=== PATIENT | female | born 1990 | race Caucasian/White ===

== ENCOUNTER → 2017-07-07 | Outpatient (CLI) | payer BC ==
--- NOTE | 2017-07-07 12:44 | DIAGNOSTIC IMAGING REPORT ---
ABDOMEN COMPLETE (US) HISTORY: Pain AB PAIN, CHANGE IN BOWEL HABITS, TACHYCARDIA. COMPARISON: None. FINDINGS: Pancreas: The pancreas demonstrates a normal echotexture. Liver: Mild fatty infiltration Gallbladder: Small amount of sludge. No shadowing gallstones. CBD: 4 mm Kidneys: No hydronephrosis. Spleen: Normal in size. Aorta: Normal in caliber. IVC: Patent. IMPRESSION: 1. Fatty infiltration of liver. 2. Small amount of gallbladder sludge. 3. No shadowing gallstones. 4. Normal caliber bile ducts. The above report was generated using voice recognition software. It may contain grammatical, syntax or spelling errors. Electronically signed by: Óscar Sun M.D. 07/07/2017 12:43 PM Dictated Date/Time: 07/07/2017 12:41 PM
== END | disposition home or self-care (01) ==
LOC: C.ULTR 11:21
PROVIDERS: ATTEND Nurse Practitioner Family
DX: R10.9 Unspecified abdominal pain (principal); D72.829 Elevated white blood cell count, unspecified; R00.0 Tachycardia, unspecified; R19.4 Change in bowel habit